=== PATIENT | female | born 1950 | race Caucasian/White ===

== ENCOUNTER → 2017-05-01 | Outpatient (CLI) | payer MEDICARE, OTHER ==
[~2017-05-01] MED LIST: ACYC800T PO; ALLO100T PO; DULO30CA45 PO; GABA300C PO; HYDR25VI IM; NAPR500T8 PO; TRIA1CAP PO
--- NOTE | 2017-05-01 16:02 | RADRPT ---
PROCEDURE: XR bilateral knees. CLINICAL INDICATION: Knee pain TECHNIQUE: AP weightbearing and lateral weightbearing and sunrise views are available for review. COMPARISON: None available FINDINGS: Right knee: There is moderate osteoarthrosis involving the patellofemoral compartment and mild osteoarthrosis in volving the medial tibial femoral compartment. This is associated with joint space narrowing, subcho ndral sclerosis and osteophytosis. There is otherwise normal mineralization, architecture and alignment. No fractures are identified. No osseous lesions are identified. The soft tissues are unremarkable. Left knee: There is a constrained total knee replacement. There is no evidence of loosening of the prosthesis. There is no evidence of hardware failure. The osseous structures are normal in mineralization, archi tecture and alignment No acute fracture or dislocation is seen.No osseous lesions are identified. T he soft tissues are unremarkable . IMPRESSION: Moderate osteoarthrosis involving the right patellofemoral compartment and mild osteoarthrosis invol ving the medial tibial femoral compartment. Unremarkable left constrained total knee replacement RPTAT: HGDB .Avi Mahajan MD, Date Time Electronically viewed and signed by .Avi Mahajan MD, on 05/01/2017 16:02 .B/
--- NOTE | 2017-05-01 16:03 | RADRPT ---
PROCEDURE: XR pelvis / bilateral hips. CLINICAL INDICATION: Hip pain TECHNIQUE: AP pelvis/lateral views of the right and left hip performed. COMPARISON: No prior studies are available for comparison. FINDINGS: There is a right total hip replacement. There is no evidence of loosening of the prosthesis. No hard parish failure is identified. There is moderate left hip osteoarthrosis. This is associated with joint space narrowing, subchondra l sclerosis, subchondral cyst formation and osteophytosis. There is normal osseous mineralization. No fractures or osseous lesions are identified. The soft tissues are unremarkable. There is a calc ified fibroid in the pelvis. IMPRESSION: Right total hip replacement. Moderate left hip osteoarthrosis. RPTAT: HG[facility] .Avi Mahajan MD, MD Date Time Electronically viewed and signed by .Avi Mahajan MD, on 05/01/2017 16:03 .B/
--- NOTE | 2017-05-01 22:21 | HKNOTE ---
DATE OF SERVICE: 05/01/2017 MAIN COMPLAINT: Pain in the right knee and the left hip. HISTORY OF MAIN COMPLAINT: The patient is a 66-year-old female who has previously undergone right h ip replacement and left knee replacement performed by me around 2011. She has been very pleased wit h the result of her surgeries. She now comes in complaining of pain in her left hip and right knee. Since she last saw me, she lost 122 pounds over the past 18 months since she had a gastric procedure . She states she is "feeling like a new woman." She has absolutely no pain in her right hip and le ft knee. PRESENT COMPLAINTS: The pain in the left hip is worse than in the left knee and is localized to the groin. Pain is currently mild, but from time to time it gets to be moderate. Pain is aggravated b y walking. She does not get rest pain or night pain. The right knee gets "an occasional twinge of pain." She has no back pain, no numbness or tingling in her legs. On a level surface, she can wal k for 30 minutes at a time without stopping. She limps "a little." She does not have shoe lift. S he can clip her toenails and tie her shoelaces. PAST ORTHOPEDIC HISTORY: Right hip replacement, left knee replacement. PRIOR CORTISONE INTAKE: The patient has had previous cortisone injections into the opposite knee. ALCOHOL INTAKE: Infrequent. OTHER JOINT PROBLEMS: None. BLOOD TESTS FOR ARTHRITIS: Yes (doesn't know the result). WORK STATUS: The patient is retired. PAST MEDICAL HISTORY: Negative. PAST SURGICAL HISTORY: 1. Left knee replacement. 2. Right hip replacement by Dr. Adair. 3. Gastric sleeve by Dr. Marks, 10/03/2015. 4. section, 1978. DRUG ALLERGIES: NONE. MEDICATIONS: 1. "Water pill." 2. Terri twice a day. 3. Xolair once a month. 4. Hydroxyzine 2 at night. 5. Prozac 10 mg at night. 6. Multivitamins. 7. Vitamin D. FAMILY HISTORY: Father , unstated age, unstated cause. Mother , unstated age, from a strok e. SYSTEMS REVIEW: Prone to dizzy spells. Numbness in her right foot and leg since after her hip surg magdaleno. History of pneumonia. Cardiac murmur. HABITS: The patient does not smoke. She drinks on rare occasions. 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 PHYSICAL EXAMINATION GENERAL: The patient is a fit-looking, youthful 66-year-old female. She walks without a walking ai d. Her gait is normal. VITAL SIGNS: Height 5 feet 3 inches. Weight 204 pounds. Blood pressure 145/70, temperature 99.0. HIPS: Both hips have full range of motion without pain. LEFT KNEE: Scar of previous knee replacement. Full range of motion. No pain, external sign of inf ection or inflammation. RIGHT KNEE: The right knee shows normal alignment. Active and passive extension is 0 degrees. Activ e and passive flexion is 135 degrees. The medial and lateral collateral ligaments and cruciate ligam ents are intact. Myrtle test is negative. There is 6+ crepitus in the knee, none in patella. There is no effusion, tenderness, scarring, or cysts. The patella tracks normally. There is no tenderness on the articular surface of the patella or in the patellar groove. The Q angle is normal. IMAGING: Plain x-rays of her left hip obtained today show moderate narrowing of the superior joint space, but the rest of the hip joint is well maintained. There are no osteophytes or subchondral sc lerosis or intraosseous cysts. Imaging of the right knee (3 views) shows moderate narrowing of the medial joint space, otherwise a fairly normal-looking joint. DIAGNOSES: 1. Status post right hip and left knee replacement 2. Degenerative osteoarthritis of the left hip. 3. Degenerative osteoarthritis of the right knee. 4. Status post gastric band placement with tremendous weight loss. MANAGEMENT: The patient supplies information that the pain currently is "not so bad." She came in to get my assessment and "to see how bad the x-rays were." She was advised that she may need to have a hip and a knee replacement sometime in the future, but I do not recommend it at this time. Her symptoms are minimal, and the clinical findings and radiolog ical findings are moderate. She will return if and when her pain gets worse in either the right knee or the left hip and will in ject cortisone into the hip and manage her conservatively until such time as she needs a hip and a k nee replacement. Dictated By: LIV RAMÍREZ/NAHUN Conf#: [id number] DID#: [id number]
== END | disposition home or self-care (01) ==
LOC: HKI 15:44
DX: M25.561 Pain in right knee (principal); M25.552 Pain in left hip; M16.12 Unilateral primary osteoarthritis, left hip; M17.11 Unilateral primary osteoarthritis, right knee; Z96.641 Presence of right artificial hip joint; Z96.652 Presence of left artificial knee joint
CPT/HCPCS: 73523; 73562; G0463